=== PATIENT | male | born 1975 | race Caucasian/White ===

== ENCOUNTER 2020-11-06 11:25 | Day surgery (SDC) | payer OTHER ==
[2020-11-06] MEDS ORDERED: Xylocaine-Mpf 2% 5 Ml Vial IJ ONE (11:26)
[2020-11-06] MEDS ORDERED: Ketamine HCl 50 MG/ML ONE (13:11)
[2020-11-06] MEDS ORDERED: DIPRIVAN 200 MG/20 ML IV ONE (13:11)
--- NOTE | 2020-11-06 14:17 | XRAY ---
6 seconds fluoroscopy time in surgery for bilateral L4-S1 MBB.
--- NOTE | 2020-11-06 14:24 | XRAY ---
Indication: Bilateral L4-S1 MBB. Intraoperative fluoroscopy provided for 6 seconds. Single digital spot image submitted for interpretation demonstrates posterior needle tips projecting over the expected left and right L4-S1 nerve roots. Correlate with intraoperative findings and report.
[2020-11-06] MEDS ORDERED: Lactated Ringers 1,000 ML IV ONE (16:21)
== END 2020-11-06 13:31 | disposition home or self-care (01) ==
LOC: SDC-PAIN 11:25
PROVIDERS: ATTEND Psychiatry & Neurology Pain Medicine
DX: M47.816 Spondylosis without myelopathy or radiculopathy, lumbar region (principal); E78.5 Hyperlipidemia, unspecified; Z79.899 Other long term (current) drug therapy
CPT/HCPCS: 64493; 64494; 72020; 77002; J2704

== ENCOUNTER 2021-01-08 14:12 | Day surgery (SDC) | payer OTHER ==
[2021-01-08] MEDS ORDERED: Depo-Medrol 40 MG/ML IM ONE (14:13)
[2021-01-08] MEDS ORDERED: BUPIVACAINE 0.5% VIAL IJ ONE (14:13)
[2021-01-08] MEDS ORDERED: Lactated Ringers 1,000 ML IV ONE ×2 (14:22→15:30)
--- NOTE | 2021-01-08 18:29 | XRAY ---
Indication: Bilateral L4-S1 MBB. Intraoperative fluoroscopy provided for 8 seconds. Single digital spot image submitted for interpretation demonstrates posterior needle tips projecting over the expected left and right L4-S1 nerve roots. Correlate with intraoperative findings/report.
--- NOTE | 2021-01-09 09:02 | XRAY ---
8 seconds fluoroscopy time in surgery for bilateral L4-S1 MBB.
== END 2021-01-08 16:07 | disposition home or self-care (01) ==
LOC: SDC-PAIN 14:12
PROVIDERS: ATTEND Psychiatry & Neurology Pain Medicine
DX: M47.816 Spondylosis without myelopathy or radiculopathy, lumbar region (principal); E78.5 Hyperlipidemia, unspecified; Z79.899 Other long term (current) drug therapy
CPT/HCPCS: 64493; 64494; 72020; 77002; J1030

== ENCOUNTER 2021-02-12 08:58 | Day surgery (SDC) | payer OTHER ==
[2021-02-12] MEDS ORDERED: BUPIVACAINE 0.5% VIAL IJ ONE (08:59)
[2021-02-12] MEDS ORDERED: Depo-Medrol 40 MG/ML IM ONE (08:59)
[2021-02-12] MEDS ORDERED: Xylocaine 1% Vial 30 ML PF IJ ONE (08:59)
[2021-02-12] MEDS ORDERED: DIPRIVAN 200 MG/20 ML IV ONE (10:22)
[2021-02-12] MEDS ORDERED: Lactated Ringers 1,000 ML IV ONE (16:27)
--- NOTE | 2021-02-13 11:33 | XRAY ---
21 seconds fluoroscopy time in surgery for right L4-S1 RFA.
== END 2021-02-12 10:55 | disposition home or self-care (01) ==
LOC: SDC-PAIN 08:58
PROVIDERS: ATTEND Psychiatry & Neurology Pain Medicine
DX: M47.816 Spondylosis without myelopathy or radiculopathy, lumbar region (principal); F41.9 Anxiety disorder, unspecified; F32.9 Major depressive disorder, single episode, unspecified; E78.5 Hyperlipidemia, unspecified; Z79.899 Other long term (current) drug therapy
CPT/HCPCS: 64635; 64636; 72100; 77002; J1030; J2001; J2704